=== PATIENT | male | born 1970 | race Caucasian/White ===

== ENCOUNTER 2018-03-15 18:18 | Emergency (ER) | payer BC, OTHER ==
[2018-03-15] MEDS ORDERED: ASPIRIN TABLET 325 MG TAB PO ONE (18:48)
[2018-03-15] MEDS ORDERED: SODIUM CHLORIDE 0.9% (FLUSH) 10 ML SYG IV PRN (18:48)
--- NOTE | 2018-03-15 19:07 | RAD ---
EXAM DESCRIPTION: Chest,1 View CLINICAL HISTORY:48 years Male, chest pain Comparison: None FINDINGS: No focal lung consolidation. No pleural effusion. No pneumothorax. Cardiac and mediastinal silhouette is unremarkable. No acute osseous abnormality. Soft tissues are unremarkable. IMPRESSION: No acute findings. No focal lung consolidation. Electronically signed by: Alfred Liu DO 03/15/2018 7:06 PM CDT
[2018-03-15] MEDS ORDERED: LABETALOL INJ 5 MG/ML VIAL IV ONE ×2 (19:28→21:03)
[2018-03-15] MEDS ORDERED: LABETALOL INJ 5 MG/ML VIAL ONE (19:29)
--- NOTE | 2018-03-15 19:58 | ED.PDOC ---
History of Present Illness - General Source: patient Exam Limitations: no limitations - History of Present Illness Initial Comments: Ag Abdi 48 y/o male stated that he had chest pressure for the last 2 1/2 weeks with sob and radiating to both shoulders stating been stressed out at work and once he comes to work symptoms starts and when he takes a break calms down and on going home.Also blood pressure has been elevated. Timing/Duration: other - 2 1/2 weeks Severity: moderate <London Sifuentes H - Last Filed: 03/15/18 20:01> - General Source: patient Exam Limitations: no limitations - History of Present Illness Severity: moderate Location: central Activities at Onset: emotional stress Prior Chest Pain/Cardiac Workup: no prior chest pain Worsening Factors: rest Nitro Today/Relief: no nitro taken today Aspirin Treatment Today: provided by ED <Ruddy Palm R - Last Filed: 03/15/18 22:35> - General Chief Complaint: Chest Pain/WI Stated Complaint: chest pain Time Seen by Provider: 03/15/18 19:55 - History of Present Illness Allergies/Adverse Reactions: Allergies NO KNOWN ALLERGY Allergy (Verified 03/15/18 18:27) Home Medications: Ambulatory Orders Chlorthalidone [Hygroton] 25 mg PO ACBK #14 tab 03/15/18 Review of Systems - Review of Systems Constitutional: States: no symptoms reported EENTM: States: no symptoms reported Respiratory: States: no symptoms reported Cardiology: States: see HPI Gastrointestinal/Abdominal: States: no symptoms reported Genitourinary: States: no symptoms reported Musculoskeletal: States: no symptoms reported Skin: States: no symptoms reported Neurological: States: no symptoms reported Endocrine: States: no symptoms reported Hematologic/Lymphatic: States: no symptoms reported <Ruddy Palm R - Last Filed: 03/15/18 22:35> Past Medical History (General) - Patient Medical History Hx Stroke: No Hx Congestive Heart Failure: No Hx Diabetes: No - Vaccination History Hx Influenza Vaccination: No - Social History Hx Tobacco Use: No <London Sifuentes - Last Filed: 03/15/18 20:01> - Patient Medical History Hx Seizures: No Hx Cardiac Disorders: No Hx Hypertension: No Surgical History: other - ankle-ORIF - Social History Hx Tobacco Use: No Hx Alcohol Use: Yes - socially Hx Substance Use: No Hx Physical Abuse: No Hx Emotional Abuse: No <Ruddy Palm R - Last Filed: 03/15/18 22:35> Family Medical History - Family History Father Family History: Unknown Living Status: Unknown <London Sifuentes H - Last Filed: 03/15/18 20:01> - Family History Father Family History: No Known <Ruddy Palm R - Last Filed: 03/15/18 22:35> Physical Exam - Physical Exam General Appearance: Alert, Comfortable, No apparent distress Eyes, Ears, Nose, Throat Exam: normal ENT inspection Neck: non-tender, full range of motion, supple, normal inspection Respiratory: chest non-tender, lungs clear, normal breath sounds Cardiovascular/Chest: normal peripheral pulses, regular rate, rhythm, no murmur Peripheral Pulses: radial,right: 2+, radial,left: 2+ Gastrointestinal/Abdominal: normal bowel sounds, non tender, soft, no organomegaly Rectal Exam: normal exam Extremity: no pedal edema, no calf tenderness Neurologic: alert Skin Exam: normal color, warm/dry Lymphatic: no adenopathy <Ruddy Palm R - Last Filed: 03/15/18 22:35> Progress - Progress Progress: 03/15/18 20:56 03/15/18 18:48 Telemetry .ONCE Sodium Chloride 0.9% (Flush) [Saline Flush Syringe] 10 ml IV PRN PRN EKG Stat Pulse Ox Stat 03/15/18 20:51 TROPONIN-I Stat 03/15/18 20:52 EKG Assessment ONCE 03/15/18 21:00 EKG STAT Laboratory Results - last 24 hr 03/15/18 18:55 WBC 6.1 RBC 4.60 L Hgb 15.2 Hct 45.3 MCV 98.3 H MCH 33.0 H MCHC 33.6 RDW 13.5 Plt Count 247 MPV 7.9 Absolute Neuts (auto) 3.90 Absolute Lymphs (auto) 1.50 Absolute Monos (auto) 0.60 Absolute Eos (auto) 0.10 Absolute Basos (auto) 0.10 Neutrophils % 63.9 Lymphocytes % 24.1 Monocytes % 9.8 H Eosinophils % 1.3 Basophils % 0.9 PT 9.9 INR 0.99 PTT (SP) 23.9 Sodium 139 Potassium 3.8 Chloride 104 Carbon Dioxide 27 Anion Gap 11.8 L BUN 12 Creatinine 0.78 BUN/Creatinine Ratio 15.4 Random Glucose 121 H Serum Osmolality 278.5 Calcium 9.5 Magnesium 2.0 Creatine Kinase 131 CK-MB (CK-2) 1.5 CK-MB (CK-2) % Not Reportable Troponin I < 0.02 B-Natriuretic Peptide 5.9 03/15/18 22:27 Discuss all test result stating no acute myocardial injury recommend Hospital OBS but declined ;has appointment with Dr. August 27 March 2018;presently asymptomatic 03/15/18 22:29 03/15/18 22:29 Vital Signs - 8 hr 03/15/18 03/15/18 03/15/18 18:24 18:50 18:56 Temperature 98.6 F Pulse Rate 115 H Pulse Rate [ 115 H Left Brachial] Respiratory 20 Rate Blood Pressure 167/128 [Left Arm] O2 Sat by Pulse 97 96 Oximetry 03/15/18 03/15/18 03/15/18 18:58 19:25 19:35 Temperature Pulse Rate 115 H Pulse Rate [ 115 H 83 85 Left Brachial] Respiratory 20 20 Rate Blood Pressure 153/102 128/91 [Left Arm] O2 Sat by Pulse 96 96 Oximetry 03/15/18 03/15/18 03/15/18 20:00 20:49 21:00 Temperature 97.8 F 97.8 F Pulse Rate 115 H 115 H 115 H Pulse Rate [ 74 82 67 Left Brachial] Respiratory 20 20 20 Rate Blood Pressure 131/104 148/103 150/103 [Left Arm] O2 Sat by Pulse 96 96 98 Oximetry 03/15/18 22:24 Temperature 98.1 F Pulse Rate 77 Pulse Rate [ 73 Left Brachial] Respiratory 20 Rate Blood Pressure 136/81 [Left Arm] O2 Sat by Pulse 98 Oximetry - Results/Orders Results/Orders: 03/15/18 18:48 Telemetry .ONCE Sodium Chloride 0.9% (Flush) [Saline Flush Syringe] 10 ml IV PRN PRN EKG Stat Pulse Ox Stat 03/15/18 21:00 EKG STAT Laboratory Results - last 24 hr 03/15/18 03/15/18 18:55 21:05 WBC 6.1 RBC 4.60 L Hgb 15.2 Hct 45.3 MCV 98.3 H MCH 33.0 H MCHC 33.6 RDW 13.5 Plt Count 247 MPV 7.9 Absolute Neuts (auto) 3.90 Absolute Lymphs (auto) 1.50 Absolute Monos (auto) 0.60 Absolute Eos (auto) 0.10 Absolute Basos (auto) 0.10 Neutrophils % 63.9 Lymphocytes % 24.1 Monocytes % 9.8 H Eosinophils % 1.3 Basophils % 0.9 PT 9.9 INR 0.99 PTT (SP) 23.9 Sodium 139 Potassium 3.8 Chloride 104 Carbon Dioxide 27 Anion Gap 11.8 L BUN 12 Creatinine 0.78 BUN/Creatinine Ratio 15.4 Random Glucose 121 H Serum Osmolality 278.5 Calcium 9.5 Magnesium 2.0 Creatine Kinase 131 CK-MB (CK-2) 1.5 CK-MB (CK-2) % Not Reportable Troponin I < 0.02 < 0.02 B-Natriuretic Peptide 5.9 - EKG/XRAY/CT EKG: Sinus, Tachy Comments: HR-111 XRAY: chest - no acute abnormalities - Additional EKG/XRAY/Consults EKG #2: Sinus, no ST T wave changes Comments: HR- 80 <Ruddy Palm R - Last Filed: 03/15/18 22:35> Departure <London Sifuentes H - Last Filed: 03/15/18 20:01> - Departure Time of Disposition: 22:31 <Ruddy Palm - Last Filed: 03/15/18 22:35> - Departure Clinical Impression: Chest tightness or pressure Hypertension Qualifiers: Hypertension type: unspecified Qualified Code(s): I10 - Essential (primary) hypertension Disposition: Discharge to Home or Self Care Condition: Good Departure Forms: ED Discharge - Pt. Copy, Patient Portal Self Enrollment Instructions: DI for Chest Pain, High Blood Pressure in Adults, High Blood Pressure (DC), DASH Diet Prescriptions: Chlorthalidone [Hygroton] 25 mg PO ACBK #14 tab Home Medications: Ambulatory Orders Chlorthalidone [Hygroton] 25 mg PO ACBK #14 tab 03/15/18 Additional Instructions: continue with Baby aspirin -81 mg daily;Return to emergency room as needed;Keep appointment with MD as scheduled
[2018-03-15 22:24] VITALS: O2SAT 98
[2018-03-15 22:25] VITALS: TEMP 98.1
[2018-03-15 22:48] VITALS: BP 150/95
== END 2018-03-15 22:47 | disposition home or self-care (01) ==
LOC: ER 18:18
DX: R07.89 Other chest pain (principal)

== ENCOUNTER → 2018-07-24 | Outpatient (CLI) | payer BC, OTHER ==
--- NOTE | 2018-07-24 16:53 | US ---
EXAM DESCRIPTION: Liver: ULTRASOUND. CLINICAL HISTORY: ELEVATED LFTS COMPARISON: None. TECHNIQUE: Transabdominal scannin-dimensional and Doppler modes. FINDINGS: Gallbladder: normal size, shape, echogenicity; no intraluminal stones or sludge. No fluid around the gallbladder. No wall thickening. 2.0 Non-tender with transducer pressure. Common bile duct: caliber 3.0 mm within normal limits. Liver: normal echogenicity; contour liver capsule smooth where seen. No fluid around the liver. Intrahepatic biliary ducts normal caliber. Doppler hepatopedal flow portal vein. 1 cm. Long axis right lobe 15.8 cm. Pancreas: normal size and echogenicity. Duct not seen. Right kidney: long axis measures 11.4 cm. Increased cortical echogenicity. Minimally decreased cortical thickness. No hydronephrosis Abdominal aorta: Normal caliber from the proximal segment to the distal bifurcation. IMPRESSION: Unremarkable right upper quadrant abdominal ultrasound. No stones. Normal caliber of the ducts. Normal vascularity. No ascites. Right kidney with minimally echogenic and thinning cortex but otherwise unremarkable. Electronically signed by: Chadwick Mccoy MD 07/24/2018 4:50 PM [facility] [employer]
== END ==
LOC: US 07-10 15:05
PROVIDERS: ATTEND Family Medicine
DX: R94.5 Abnormal results of liver function studies (principal)

== ENCOUNTER → 2018-08-24 | Outpatient (CLI) | payer BC | LOC: LAB.O 07:55 | PROVIDERS: ATTEND Family Medicine | DX: R94.5 Abnormal results of liver function studies (principal) ==

== ENCOUNTER → 2018-11-20 | Outpatient (CLI) | payer BC | LOC: GMAL 08:48 | PROVIDERS: ATTEND Family Medicine | DX: R94.5 Abnormal results of liver function studies (principal); Z79.899 Other long term (current) drug therapy ==

== ENCOUNTER → 2020-08-05 | Outpatient (CLI) | payer BC | LOC: GMAL 11:42 | PROVIDERS: ATTEND Family Medicine | DX: Z00.01 Encounter for general adult medical examination with abnormal findings (principal); D51.3 Other dietary vitamin B12 deficiency anemia; E55.9 Vitamin D deficiency, unspecified ==